=== PATIENT | male | born 1965 | race Caucasian/White ===

== ENCOUNTER 2020-01-29 12:40 | Emergency (ER) | payer BC ==
--- NOTE | 2020-01-29 14:01 | CRLCT ---
INDICATION: Difficulty with coordination since Wednesday. COMPARISON: None available. TECHNIQUE: CT examination of the head was performed with 3 mm thick axial sections without intravenous contrast. Images were obtained from the vertex of the skull through the skull base, and I examined the images with the brain and bone windows. Please note that all CT scans at this facility use dose modulation, iterative reconstruction, and/or weight-based dosing when appropriate to reduce radiation dose to as low as reasonably achievable. FINDINGS: : The brain is normal in appearance for the patient`s age on today`s study, with no sign of mass lesion, mass effect, hemorrhage, or edema. The ventricles and sulci are normal in appearance for the patient`s age. The visualized portions of the orbits are normal in appearance. The visualized portions of the paranasal sinuses and mastoids are clear. The osseous structures are normal in their appearance with no sign of abnormality in the skull base or calvarium. IMPRESSION: Normal noncontrast CT of the head for the patient`s age. Please note that all CT scans at this facility use dose modulation, iterative reconstruction, and/or weight-based dosing when appropriate to reduce radiation dose to as low as reasonably achievable. Dictated by Marcelo Trevizo MD @ Jan 29 2020 1:56PM Signed by Dr. Marcelo Trevizo @ Jan 29 2020 1:58PM
[2020-01-29] MEDS ORDERED: Sodium Chloride 0.9% 1,000 ML IV SCH (14:45)
[2020-01-29 15:20] VITALS: PULSE 68
[2020-01-29 15:53] VITALS: BP 173/91
--- NOTE | 2020-01-29 16:22 | EDM.PDOC ---
ED HPI GENERAL MEDICAL PROBLEM - General Chief Complaint: Respiratory Problem Stated Complaint: CONCERN FOR STROKE Time Seen by Provider: 01/29/20 16:22 Source of Information: Reports: Patient History Limitations: Reports: No Limitations - History of Present Illness INITIAL COMMENTS - FREE TEXT/NARRATIVE: pt had a allergy shot last wed. He felt off after that and he felt like for 5 minutes he was having difficulty coordinating his hands, This cleared. He did develop a little tightness in the throat also. The rt side of his face felt strange, Today he noted the the rt side of his face was a little tingly. He has some persistent symptoms at this time. He has just felt a little off. Onset: Other ( started last wed. ) Duration: Hour(s): Location: Reports: Face, Neck, Generalized Associated Symptoms: Reports: Other ( slight tightness in the throat. ) - Related Data Allergies Allergy/AdvReac Type Severity Reaction Status Date / Time No Known Allergies Allergy Verified 01/29/20 12:52 Home Meds: Home Meds Lisinopril 5 mg PO DAILY 01/12/14 [History] Simvastatin 40 mg PO BEDTIME 01/12/14 [History] carvediloL [Carvedilol] 6.25 mg PO BID 01/12/14 [History] Multivitamin with Minerals [Multivitamins with Minerals] 1 each PO DAILY [History] Omeprazole [Prilosec] 20 mg PO DAILY 01/15/16 [History] Aspirin 325 mg PO DAILY 01/29/20 [History] Past Medical History HEENT History: Reports: Impaired Vision Other HEENT History: wears glasses Cardiovascular History: Reports: High Cholesterol, Hypertension Respiratory History: Reports: Bronchitis, Recurrent Other Respiratory History: currently have bronchitis-being treated Gastrointestinal History: Reports: GERD, Hemorrhoids Psychiatric History: Reports: Anxiety, Panic Attack Endocrine/Metabolic History: Reports: Obesity/BMI 30+ - Infectious Disease History Infectious Disease History: Reports: Chicken Pox - Past Surgical History Cardiovascular Surgical History: Reports: Other (See Below) Other Cardiovascular Surgeries/Procedures: angiogram Neurological Surgical History: Reports: None Social & Family History - Family History Cardiac: Reports: Hypertension GI: Reports: Other (See Below) Other GI Family History: chrons Neurological: Reports: CVA Oncologic: Reports: Breast - Tobacco Use Smoking Status *Q: Never Smoker - Caffeine Use Caffeine Use: Reports: Soda - Alcohol Use Days Per Week of Alcohol Use: 2 Number of Drinks Per Day: 6 Total Drinks Per Week: 12 - Recreational Drug Use Recreational Drug Use: No ED ROS GENERAL - Review of Systems Review Of Systems: See Below Constitutional: Reports: No Symptoms HEENT: Reports: No Symptoms, Throat Swelling Respiratory: Reports: No Symptoms Cardiovascular: Reports: No Symptoms, Blood Pressure Problem, Other (bp is elevated. ) Endocrine: Reports: No Symptoms GI/Abdominal: Reports: No Symptoms : Reports: No Symptoms Musculoskeletal: Reports: No Symptoms Skin: Reports: No Symptoms ED EXAM, GENERAL - Physical Exam Exam: See Below Free Text/Narrative:: pt arrived feeling that he had a slight tingling on his rt face. He had tightness in the throat after his allergy shot. He had a strange sensation in his rt face. He has just felt a little off. Exam Limited By: No Limitations General Appearance: Alert, No Apparent Distress, Anxious, Other (pupils are equal and reactve. ) Ears: Normal TMs Nose: Normal Inspection Throat/Mouth: Normal Inspection Head: Atraumatic Neck: Normal Inspection Respiratory/Chest: No Respiratory Distress Cardiovascular: Regular Rate, Rhythm GI/Abdominal: Soft, Non-Tender (Male) Exam: Deferred Rectal (Males) Exam: Deferred Back Exam: Normal Inspection Extremities: Normal Inspection Neurological: Alert, Oriented, Normal Cognition, Other (no other symptoms. ) Psychiatric: Normal Affect, Anxious Course - Vital Signs Last Recorded V/S: Last Vital Signs Temp 36.4 C 01/29/20 13:03 Pulse 68 01/29/20 15:53 Resp 14 01/29/20 15:53 BP 173/91 H 01/29/20 15:53 Pulse Ox 95 01/29/20 15:53 - Orders/Labs/Meds Orders: Active Orders 24 hr Category Date Time Status EKG Documentation Completion [RC] ASDIRECTED Care 01/29/20 13:26 Active Sodium Chloride 0.9% [Normal Saline] 1,000 ml Med 01/29/20 14:45 Active IV ASDIRECTED EKG 12 Lead [EK] Routine Ther 01/29/20 13:26 Ordered Medication Orders Sodium Chloride (Normal Saline) 1,000 mls @ 999 mls/hr IV ASDIRECTED KVNG Last Admin: 01/29/20 15:15 Dose: 999 mls/hr Labs: Laboratory Tests 01/29/20 01/29/20 01/29/20 Range/Units 13:24 13:37 13:59 WBC 6.4 (4.5-11.0) K/uL RBC 5.01 (4.30-5.90) M/uL Hgb 14.5 (12.0-15.0) g/dL Hct 44.8 (40.0-54.0) % MCV 89 (80-98) fL MCH 29 (27-31) pg MCHC 32 (32-36) % Plt Count 240 (150-400) K/uL Neut % (Auto) 62 (36-66) % Lymph % (Auto) 24 (24-44) % [place] % (Auto) 10 H (2-6) % Eos % (Auto) 4 (2-4) % Baso % (Auto) 0 (0-1) % Sodium 137 L (140-148) mmol/L Potassium 4.2 (3.6-5.2) mmol/L Chloride 101 (100-108) mmol/L Carbon Dioxide 25 (21-32) mmol/L Anion Gap 15.2 H (5.0-14.0) mmol/L BUN 21 H (7-18) mg/dL Creatinine 1.1 (0.8-1.3) mg/dL Est Cr Clr Drug Dosing 78.35 mL/min Estimated GFR (MDRD) > 60 (>60) Glucose 113 H (74-106) mg/dL Calcium 8.4 L (8.5-10.1) mg/dL Total Bilirubin 0.5 (0.2-1.0) mg/dL AST 28 (15-37) U/L ALT 43 (12-78) U/L Alkaline Phosphatase 71 (46-116) U/L Total Protein 7.1 (6.4-8.2) g/dL Albumin 3.6 (3.4-5.0) g/dL Globulin 3.5 (2.3-3.5) g/dL Albumin/Globulin Ratio 1.0 L (1.2-2.2) Urine Color Yellow (YELLOW) Urine Appearance Clear (CLEAR) Urine pH 5.5 (5.0-8.0) Ur Specific [place] 1.025 (1.008-1.030) Urine Protein Negative (NEGATIVE) mg/dL Urine Glucose (UA) Negative (NEGATIVE) mg/dL Urine Ketones Negative (NEGATIVE) mg/dL Urine Occult Blood Negative (NEGATIVE) Urine Nitrite Negative (NEGATIVE) Urine Bilirubin Negative (NEGATIVE) Urine Urobilinogen 0.2 (0.2-1.0) EU/dL Ur Leukocyte Esterase Negative (NEGATIVE) Urine RBC 0-5 (0-5) Urine WBC 0-5 (0-5) Ur Epithelial Cells Rare Amorphous Sediment Not seen Urine Bacteria Rare Urine Mucus Not seen Meds: Medications Generic Name Dose Route Start Last Admin Trade Name Freq PRN Reason Stop Dose Admin Sodium Chloride 1,000 mls @ 999 mls/hr 01/29/20 14:45 01/29/20 15:15 Normal Saline IV 999 mls/hr ASDIRECTED KVNG Administration - Re-Assessments/Exams Free Text/Narrative Re-Assessment/Exam: 01/29/20 16:32 pt had normal labs, his cat scan of the head was normal. He appeared to be mildly dehydrated. He was given fluids, His bp was consistently up. Departure - Departure Time of Disposition: 16:19 Disposition: Home, Self-Care 01 Condition: Fair Clinical Impression: Dehydration, Viral illness, Hypertension - Discharge Information Referrals: PCP,None [Primary Care Provider] - Forms: ED Department Discharge Care Plan Goals: push fluids, keep follow up appt, increase lisinopril to 1.5 mg daily rtc if further symptoms. Sepsis Event Note - Evaluation Sepsis Screening Result: No Definite Risk - Focused Exam Vital Signs: Vital Signs Temp Pulse Resp BP Pulse Ox 01/29/20 15:53 68 14 173/91 H 95 01/29/20 15:19 68 15 173/93 H 95 01/29/20 14:32 65 12 164/84 H 65 L 01/29/20 14:21 70 15 157/87 H 94 L 01/29/20 13:03 36.4 C 83 20 155/92 H 97 Date Exam was Performed: 01/29/20 Time Exam was Performed: 16:22 - My Orders Last 24 Hours: My Active Orders 01/29/20 13:26 EKG Documentation Completion [RC] ASDIRECTED EKG 12 Lead [EK] Routine 01/29/20 14:45 Sodium Chloride 0.9% [Normal Saline] 1,000 ml IV ASDIRECTED - Assessment/Plan Last 24 Hours: My Active Orders 01/29/20 13:26 EKG Documentation Completion [RC] ASDIRECTED EKG 12 Lead [EK] Routine 01/29/20 14:45 Sodium Chloride 0.9% [Normal Saline] 1,000 ml IV ASDIRECTED
== END 2020-01-29 16:49 | disposition home or self-care (01) ==
LOC: JP.ED 12:40
DX: B34.9 Viral infection, unspecified (principal); E86.0 Dehydration; I10 Essential (primary) hypertension; K21.9 Gastro-esophageal reflux disease without esophagitis; E66.9 Obesity, unspecified; Z79.82 Long term (current) use of aspirin; Z79.899 Other long term (current) drug therapy
CPT/HCPCS: 36415; 70450; 80053; 81001; 85025; 93005; 96360; 99284; J7030

== ENCOUNTER 2023-01-01 20:15 | Emergency (ER) | payer BC ==
[2023-01-01 21:25] LABS: ESTIMATED GFR 87 mL/min (>60); TROPONIN I HIGH SENSITIVITY 6.2 pg/mL (<=60.3)
[2023-01-01 21:37] LABS: CORONAVIRUS COVID-19 NAA NEGATIVE (NEGATIVE)
[2023-01-01] MEDS ORDERED: amLODIPine 5 MG Tab PO ONE (22:27)
[2023-01-01 22:31] VITALS: BP 160/82; PULSE 64
== END 2023-01-01 23:42 | disposition home or self-care (01) ==
LOC: JP.ED 20:15
DX: I16.0 Hypertensive urgency (principal); E78.00 Pure hypercholesterolemia, unspecified; K21.9 Gastro-esophageal reflux disease without esophagitis; E66.9 Obesity, unspecified; Z68.35 Body mass index [BMI] 35.0-35.9, adult; Z79.82 Long term (current) use of aspirin; Z79.899 Other long term (current) drug therapy; Z20.822 Contact with and (suspected) exposure to COVID-19
CPT/HCPCS: 0241U; 36415; 70450; 80053; 81001; 84443; 84484; 85025; 99283; 99284; A9270

== ENCOUNTER 2023-01-03 21:18 | Emergency (ER) | payer BC ==
[2023-01-03] MEDS ORDERED: LORazepam 2 MG/ML SDV IM ONE (21:56)
[2023-01-03 22:59] VITALS: BP 137/76; PULSE 66
== END 2023-01-03 23:11 | disposition home or self-care (01) ==
LOC: JP.ED 21:18
DX: I10 Essential (primary) hypertension (principal); E78.00 Pure hypercholesterolemia, unspecified; E66.9 Obesity, unspecified; Z68.34 Body mass index [BMI] 34.0-34.9, adult; Z79.899 Other long term (current) drug therapy; Z79.82 Long term (current) use of aspirin
CPT/HCPCS: 96372; 99283; J2060

== ENCOUNTER 2024-06-27 16:14 | Observation (INO) | payer BC ==
[2024-06-27 17:04] LABS: BASOPHILS ABSOLUTE AUTO 0.04 K/uL (0.00-0.10); BASOPHILS PERCENT AUTO 0.6 % (0.1-1.3); EOSINOPHILS ABSOLUTE AUTO 0.17 K/uL (0.00-0.40); EOSINOPHILS PERCENT AUTO 2.5 % (0.0-5.4); HEMATOCRIT 42.2 % (38.4-49.7); HEMOGLOBIN 14.3 g/dL (12.9-16.9); IMMATURE GRAN ABSOLUTE AUTO 0.03 K/uL (0.00-0.23); IMMATURE GRAN PERCENT AUTO 0.4 % (0.0-0.7); LYMPHOCYTES ABSOLUTE AUTO 1.63 K/uL (0.8-3.3); LYMPHOCYTES PERCENT AUTO 23.5 % (11.4-47.7); MEAN CORPUSCULAR HEMOGLOBIN 28.9 pg (31.6-35.5); MEAN CORPUSCULAR HGB CONC 33.9 g/dL (31.6-35.5); MEAN CORPUSCULAR VOLUME 85.3 fL (81.4-99.0); MONOCYTES ABSOLUTE AUTO 0.68 K/uL (0.20-0.90); MONOCYTES PERCENT AUTO 9.8 % (3.3-12.6); NEUTROPHILS ABSOLUTE AUTO 4.38 K/uL (1.0-7.6); NEUTROPHILS PERCENT AUTO 63.2 % (40.0-78.1); PLATELET COUNT,PLT 233 K/uL (130-375); RED BLOOD CELL COUNT 4.95 M/uL (4.14-5.76); WHITE BLOOD CELL COUNT,WBC 6.9 K/uL (3.2-11.0)
[2024-06-27 17:17] LABS: CALCIUM 8.6 mg/dL (8.5-10.1); CREATININE 1.1 mg/dL (0.8-1.3); EST CRCL DRUG DOSING (CG) 72.31 mL/min; POTASSIUM,K 3.6 mmol/L (3.6-5.2)
[2024-06-27 17:23] LABS: ANION GAP 4.6 mmol/L (5.0-14.0)
[2024-06-27] MEDS: Sodium Chloride 0.9% 1,000 ML IV SCH (20:51)
[2024-06-27] MEDS: Morphine 4 MG/ML Syringe IVPUSH PRN (20:52)
[2024-06-27] MEDS: Piperacillin/Tazobactam 4.5 GM in Sodium Chloride 0.9% 100 ML IV ONE (20:52)
[2024-06-27] MEDS ORDERED: Promethazine 12.5 MG in Sodium Chloride 0.9% 50 ML IV PRN (21:00)
[2024-06-27] MEDS ORDERED: Nicotine 14 MG/24 Hr Patch TRDERM PRN (21:00)
[2024-06-27] MEDS ORDERED: Scopalamine 1mg/3day Transdermal Patch TOP PRN (21:00)
[2024-06-27] MEDS ORDERED: diphenhydrAMINE 50 MG/ML SDV IVPUSH PRN (21:00)
[2024-06-27] MEDS ORDERED: diphenhydrAMINE 25 MG Cap PO PRN (21:00)
[2024-06-27] MEDS ORDERED: fentaNYL 50 MCG/ML SDV IVPUSH PRN (21:00)
[2024-06-28] MEDS: Piperacillin/Tazobactam 4.5 GM in Sodium Chloride 0.9% 100 ML IV SCH (01:18)
[2024-06-28] MEDS: Albuterol/Ipratropium 3.0-0.5 MG/3 ML Neb Soln NEB ONE (08:39)
[2024-06-28] MEDS: Albuterol/Ipratropium 3.0-0.5 MG/3 ML Neb Soln ONE (08:40)
[2024-06-28] MEDS ORDERED: fentaNYL 250 MCG/5 ML SDV ONE (08:41)
[2024-06-28] MEDS ORDERED: Neostigmine Methylsulfate 10 MG/10 ML MDV ONE (08:42)
[2024-06-28] MEDS ORDERED: Propofol 200 MG/20 ML SDV ONE (08:42)
[2024-06-28] MEDS ORDERED: Rocuronium 50 MG/5 ML Vial ONE (08:42)
[2024-06-28] MEDS ORDERED: Glycopyrrolate 0.2 MG/ML 5 ML MDV ONE (08:42)
[2024-06-28] MEDS ORDERED: Ondansetron 4 MG/2 ML SDV ONE (08:42)
[2024-06-28] MEDS ORDERED: Dexamethasone 4 MG/ML SDV ONE (08:42)
[2024-06-28] MEDS ORDERED: Succinylcholine 200 MG/10 ML MDV ONE (08:42)
[2024-06-28] MEDS: Piperacillin/Tazobactam/Dext 4.5 GM in Premix Bag 1 BAG IV SCH (09:26)
[2024-06-28] MEDS: Lidocaine 1% with EPINEPHrine 1:100,000 50 ML MDV ONE (10:30)
[2024-06-28] MEDS: Ropivacaine 50 ML, dexAMETHasone 8 MG, EPINEPHrine 0.4 MG, Sodium Chloride 0.9% 27.6 ML NERVRT SCH (10:30)
[2024-06-28] MEDS: Bupivacaine 0.5% 50 ML MDV ONE (10:30)
[2024-06-28] MEDS ORDERED: fentaNYL 100 MCG/2 ML SDV ONE (10:38)
[2024-06-28] MEDS ORDERED: Ketorolac 30 MG/ML SDV ONE (11:09)
[2024-06-28] MEDS: Ondansetron 4 MG/2 ML SDV IVPUSH PRN (12:53)
[2024-06-28 14:54] VITALS: BP 148/62; PULSE 81
== END 2024-06-28 15:10 | disposition home or self-care (01) ==
LOC: JP.ED 16:14 → JP.MS 18:37
PROVIDERS: ADMIT Surgery; ATTEND Surgery
DX: K35.30 Acute appendicitis with localized peritonitis, without perforation or gangrene (principal); I10 Essential (primary) hypertension; K21.9 Gastro-esophageal reflux disease without esophagitis; F41.9 Anxiety disorder, unspecified; Z79.82 Long term (current) use of aspirin; Z79.899 Other long term (current) drug therapy
CPT/HCPCS: 00840; 36415; 44970; 74176; 80048; 85025; 88304; 94640; 96361; 96365; 96366; 96375; 99285; G0378; J0171; J0330; J0665; J1100; J1596; J1885; J2270; J2405; J2543; J2704; J2710; J2795; J3010; J3490; J7030; J7620